=== PATIENT | male | born 1950 | race Caucasian/White ===

== ENCOUNTER 2018-04-08 15:15 | Outpatient (RCR) | payer OTHER ==
[2015-12-03 10:28] VITALS: BMI 35.6
--- NOTE | 2018-01-09 17:31 | PT INITIAL EVALUATION ---
MEDICAL DIAGNOSIS: left ankle s/p ORIF TREATMENT DIAGNOSIS: same DATE OF ONSET: 11/24/17 SUBJECTIVE: Amari Platt presents to physical therapy s/p L ankle ORIF on the November, however, the injury occurred on the November due to a fall. He reports that he can put "a little" weight on his L LE as long as he has the boot on. He reports that he has been moving his ankle as much as possible. He also reports that he has been soaking his L ankle and applying lotion to his foot nightly. He also reports that he has been sparingly applying ice with elevation. He rates his current pain to be 0-1 /10. He states that the pain does not increase with weightbearing as long as the boot in donned. He also reports that he has been moving his L ankle around in all directions 2-3 times per day. He states that moving his ankle around does increase his ankle pain. Pain location is L ankle ankle and described as achy. Pain scale is 1 on a ten point pain scale. 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 He demonstrated no signs or symptoms of an infection. Posture: He demonstrated minimal B rounded shoulders, increased thoracic kyphosis, and decreased lumbar lordosis. ROM: L ankle PROM: inversion: 15 degrees, eversion: 15 degrees, PF: 50 degrees, DF: 30 degrees from 0 degrees. He demonstrated empty end feels in all directions except for L ankle eversion. L ankle AROM: inversion: 5 degrees, eversion: 10 degrees, DF: 35 degrees from 0 degrees, PF: 40 degrees. He Strength: Did not test due to recent surgical intervention Special Tests: Minimal hypomobility within L cuneiforms and MTP's. Palpation: TTP: over L anterior joint line Sensation: Intact: L2-S2 B Mobility: Modified Independent with FWW Gait: Did not test; will test in the future Balance: Did not test; will test in the future ASSESSMENT: Amari will benefit from skilled physical therapy to address the listed impairments to improve function and QOL. Short Term Goals 4 weeks: Pt will demonstrate in PROM-AROM of L ankle from baseline to equal to R ankle motions (all motions) to improve function and QOL. 6 weeks: Pt will be able to ambulate independently to improve function and QOL. Patient's Goals improve range of motion, get back to walking, and then get back to work PLAN: Patient to be seen for Manual Therapy/STM/MET Strengthening/condition Ice/Heat Range of Motion Spinal Stabilization Work Hardening/Cond Stretching Neuromuscular Re-ed Closed Chain Program Electrical Stim Gait Trg/Balance Trg Home Exercise Program Therapeutic Activities 2-3x/week for 6 Weeks If you have any questions, comments, or concerns about this report or plan, please contact me at . Thank you, Danie Ni, PT, DPT MTDD
--- NOTE | 2018-01-30 16:46 | PT PLAN OF CARE ---
Physician: Michael Metzger MD Patient is being seen: 3x/week Therapist: Danie Ni, PT, DPT Medical Diagnosis: left ankle s/p ORIF Treatment Diagnosis: same Date of Onset: 11/24/17 Date of Initial Evaluation: 01/09/18 Date patient was last seen: 01/30/18 Number of treatments: 10 Number of cancellations/No shows: 0 INTERVENTIONS: Manual Therapy/STM/MET Strengthening/condition Ice/Heat Range of Motion Spinal Stabilization Work Hardening/Cond Stretching Neuromuscular Re-ed Closed Chain Program Electrical Stim Gait Trg/Balance Trg Home Exercise Program Therapeutic Activities GOALS: 4 weeks: Pt will demonstrate in PROM-AROM of L ankle from baseline to equal to R ankle motions (all motions) to improve function and QOL. Progressing well 12 weeks: Pt will be able to ambulate independently to improve function and QOL. NM PATIENT'S GOAL: improve range of motion, get back to walking, and then get back to work Status of Patient's Goals: Progressing Patient Compliance: Excellent Prognosis: Excellent Reasons for continuing therapy: This is a progress note for Amari Giulia. He reports that he continues to feel soreness around his anterior ankle and heel around distal achilles tendon. He reports that he continues to perform his current home exercise and move his foot/toes around in all directions every few hours at home. He reports that he continues to weight bear approximately 25% with his FWW around his home. He reports that the swelling has continued to decrease especially when he raises it above his heart. He reports minimal pain and states that it is more soreness than anything. He has demonstrated the following improvements: significant reduction of edema, significant improvements with L ankle PROM-AROM in all directions, however, he continues to be the most limited with DF and eversion, L ankle strength in all directions, increased L LE strength, and improved incision healing. We will continue to improve PROM-AROM of L ankle and strength. Once he is cleared to weight bear more than 25%, we will improve gait mechanics and return his gait to prior level of function. Posture: He demonstrated minimal B rounded shoulders, increased thoracic kyphosis, and decreased lumbar lordosis. ROM: L ankle PROM: inversion: 25 degrees, eversion: 20 degrees, PF: 50 degrees, DF: +2 degrees. He demonstrated empty end feels with DF and eversion and normal end feels with PF and inversion. L ankle AROM: inversion: 25 degrees, eversion: 18 degrees, DF: 0 degrees, PF: 50 degrees. Strength: Did not test due to recent surgical intervention Palpation: TTP: over L anterior joint line and distal achilles tendon If you have any questions, please contact me at [phone]. Thank you, Danie Ni, PT, DPT ENRIKE
--- NOTE | 2018-03-02 17:34 | PT PLAN OF CARE ---
Physician: Michael Metzger MD Patient is being seen: 3x/week Therapist: Danie Ni, PT, DPT Medical Diagnosis: left ankle s/p ORIF Treatment Diagnosis: same Date of Onset: 11/24/17 Date of Initial Evaluation: 01/09/18 Date patient was last seen: 03/02/18 Number of treatments: 21 Number of cancellations/No shows: 0 INTERVENTIONS: Manual Therapy/STM/MET Strengthening/condition Ice/Heat Range of Motion Spinal Stabilization Work Hardening/Cond Stretching Neuromuscular Re-ed Closed Chain Program Electrical Stim Gait Trg/Balance Trg Home Exercise Program Therapeutic Activities GOALS: 4 weeks: Pt will demonstrate in PROM-AROM of L ankle from baseline to equal to R ankle motions (all motions) to improve function and QOL. Progressing well 12 weeks: Pt will be able to ambulate independently to improve function and QOL. MET PATIENT'S GOAL: improve range of motion, get back to walking, and then get back to work Status of Patient's Goals: Progressing Patient Compliance: Excellent Prognosis: Excellent Reasons for continuing therapy: This is a progress note for Amari Aminjorgitofrantz. He reports that he is doing well. He reports that he has been doing his home exercise program at home on a daily basis. He reports that he feels like he is most limited with ankle DF and the other motions feel pretty good. He reports that he feels like walking is getting better. He reports minimal soreness/pain with walking. He demonstrated improvements with his L ankle PROM in all directions; however, he demonstrates full PROM in all directions except for L ankle DF. The L ankle DF end feel now feels like muscular end feel versus the hard end feel it did the previous weeks. He also demonstrates improvements in gait mechanics as he demonstrates equal step lengths, equal clearance, normal base of support, normal velocity, independent (no AD); however, he does demonstrate increased lateral trunk movement due to the increased height on his L LE versus his R LE. He continues to demonstrate improved swelling around foot and ankle but continues to have it. We will continue to improve PROM-AROM especially DF, strength, gait mechanics, reduce swelling, and return to prior level of function. Posture: He demonstrated minimal B rounded shoulders, increased thoracic kyphosis, and decreased lumbar lordosis. ROM: L ankle PROM: inversion: 25 degrees, eversion: 45 degrees, PF: 50 degrees, DF: +5 degrees. He demonstrated empty end feels with DF and normal end feels with PF, eversion, and inversion. L ankle AROM: inversion: 25 degrees, eversion : 45 degrees, DF: 0 degrees, PF: 50 degrees. Palpation: TTP: over L anterior joint line and distal achilles tendon If you have any questions, please contact me at [phone]. Thank you, Danie Ni, PT, DPT MTDD
[~2018-04-08 15:15] MED LIST: EZET10TA41 PO; KET10 PO; OXYC-865 PO; SIMV-59 PO
== END 2018-04-09 ==
LOC: PT 15:15
PROVIDERS: ATTEND Orthopaedic Surgery
DX: Z47.89 Encounter for other orthopedic aftercare (principal); M25.572 Pain in left ankle and joints of left foot
CPT/HCPCS: 97162

== ENCOUNTER 2018-06-05 15:15 | Outpatient (RCR) | payer OTHER ==
[2015-12-03 10:28] VITALS: BMI 35.6
--- NOTE | 2018-04-10 16:59 | PT PLAN OF CARE ---
Physician: Michael Metzger MD Patient is being seen: 3x/week Therapist: Danie Ni, PT, DPT Medical Diagnosis: left ankle s/p ORIF Treatment Diagnosis: same Date of Onset: 11/24/17 Date of Initial Evaluation: 01/09/18 Date patient was last seen: 04/10/18 Number of treatments: 31 Number of cancellations/No shows: 1 INTERVENTIONS: Manual Therapy/STM/MET Strengthening/condition Ice/Heat Range of Motion Spinal Stabilization Work Hardening/Cond Stretching Neuromuscular Re-ed Closed Chain Program Electrical Stim Gait Trg/Balance Trg Home Exercise Program Therapeutic Activities GOALS: 4 weeks: Pt will demonstrate in PROM-AROM of L ankle from baseline to equal to R ankle motions (all motions) to improve function and QOL. Progressing well 12 weeks: Pt will be able to ambulate independently to improve function and QOL. MET PATIENT'S GOAL: improve range of motion, get back to walking, and then get back to work Status of Patient's Goals: Progressing Patient Compliance: Excellent Prognosis: Excellent Reasons for continuing therapy: This is a progress note for Amari Giulia. He reports that he continues to have difficulties with swelling. He reports that he feels like his L ankle DF is staying the same. He reports that the swelling has been better since returning to [place], however, he reports that when he was in [place] that swelling was much worse. He reports that he has increased pain following working in his yard and walking more today. He demonstrates improvements with L ankle DF with PROM and with AROM from 0 degrees to 2 degrees (AROM) and 5 degrees to 8 degrees with (PROM) of his L ankle. Furthermore, he demonstrates improved gait mechanics when the ankle is not painful with excellent weight shift to the L LE along with increased push off and better initial contact. He has also demonstrated improvement with B LE strength. We will continue to improve gait mechanics, decrease swelling, increase strength, and return to prior level of function. Posture: He demonstrated minimal B rounded shoulders, increased thoracic kyphosis, and decreased lumbar lordosis. ROM: L ankle PROM: inversion: 25 degrees, eversion: 45 degrees, PF: 50 degrees, DF: +8 degrees. He demonstrated empty end feels with DF and normal end feels with PF, eversion, and inversion. L ankle AROM: inversion: 25 degrees, eversion : 45 degrees, DF: 2 degrees, PF: 50 degrees. Palpation: TTP: over L anterior joint line and distal achilles tendon If you have any questions, please contact me at [phone]. Thank you, Danie Ni, PT, DPT MTDD
--- NOTE | 2018-05-07 18:34 | PT PLAN OF CARE ---
Physician: Michael Metzger MD Patient is being seen: 3x/week Therapist: Danie Ni, PT, DPT Medical Diagnosis: left ankle s/p ORIF Treatment Diagnosis: same Date of Onset: 11/24/17 Date of Initial Evaluation: 01/09/18 Date patient was last seen: 05/06/18 Number of treatments: 41 Number of cancellations/No shows: 2 INTERVENTIONS: Manual Therapy/STM/MET Strengthening/condition Ice/Heat Range of Motion Spinal Stabilization Work Hardening/Cond Stretching Neuromuscular Re-ed Closed Chain Program Electrical Stim Gait Trg/Balance Trg Home Exercise Program Therapeutic Activities GOALS: 4 weeks: Pt will demonstrate in PROM-AROM of L ankle from baseline to equal to R ankle motions (all motions) to improve function and QOL. Progressing well 12 weeks: Pt will be able to ambulate independently to improve function and QOL. MET PATIENT'S GOAL: improve range of motion, get back to walking, and then get back to work Status of Patient's Goals: Progressing Patient Compliance: Excellent Prognosis: Excellent Reasons for continuing therapy: This is a progress note for Amari Giulia. He reports that he feels like his L ankle DF is staying the same. He reports that he was able to mow his lawn this morning without having an increase in swelling; however, he reports that he continues to have pain, which makes his walking not so great. He reports that he continues to stress his ankle with the stretching and strengthening at home. He continues to maintain his ankle PROM- AROM in all directions with normal end feels. He did demonstrate 1 degree improvement with AROM DF. He demonstrates normal gait mechanics when his ankle feels great and is not painful. If his ankle is painful, he demonstrates antalgic gait. The biggest improvement over the last few sessions, is that we can stress his L ankle and LE without increasing swelling in his lower leg. As a result, I think that it would be beneficial for him to attend PT for one more month to continue to improve ROM, strength, return to prior level of function. Posture: He demonstrated minimal B rounded shoulders, increased thoracic kyphosis, and decreased lumbar lordosis. ROM: L ankle PROM: inversion: 40 degrees, eversion: 45 degrees, PF: 50 degrees, DF: +8 degrees. He demonstrated empty end feels with DF and normal end feels with PF, eversion, and inversion. L ankle AROM: inversion: 40 degrees, eversion : 45 degrees, DF: 2 degrees, PF: 50 degrees. Palpation: TTP: over L anterior joint line and distal achilles tendon If you have any questions, please contact me at [phone]. Thank you, Danie Ni, PT, DPT MTDD
--- NOTE | 2018-06-01 17:34 | PT PLAN OF CARE ---
Physician: Michael Metzger MD Patient is being seen: 3x/week Therapist: Danie Ni, PT, DPT Medical Diagnosis: left ankle s/p ORIF Treatment Diagnosis: same Date of Onset: 11/24/17 Date of Initial Evaluation: 01/09/18 Date patient was last seen: 06/01/18 Number of treatments: 51 Number of cancellations/No shows: 2 INTERVENTIONS: Manual Therapy/STM/MET Strengthening/condition Ice/Heat Range of Motion Spinal Stabilization Work Hardening/Cond Stretching Neuromuscular Re-ed Closed Chain Program Electrical Stim Gait Trg/Balance Trg Home Exercise Program Therapeutic Activities GOALS: 4 weeks: Pt will demonstrate in PROM-AROM of L ankle from baseline to equal to R ankle motions (all motions) to improve function and QOL. Not MET 6 weeks: Pt will be able to ambulate independently to improve function and QOL. Progressing PATIENT'S GOAL: improve range of motion, get back to walking, and then get back to work Status of Patient's Goals: Progressing Patient Compliance: Good Prognosis: Excellent Reasons for continuing therapy: This is a progress note for Amari Aminjorgitofrantz. He reports that he is doing well. He reports that his L ankle DF continues to be limited. He reports that he feels like his walking is getting better. He reports that he continues to have pain on his distal tibia. Furthermore, he also reports that he occasional has lateral ankle pain around the distal fibula that has been getting better with time. He continues to demonstrate the same PROM DF despite over efforts of stretching 3 times per week. However, he demonstrated an increase in AROM of DF from 1 degree to 5 degrees, which is the same level of his PROM DF, which is a significant improvement over the last 10 sessions. He continues to demonstrate a hard end feel into DF, which could mean that it is obstructed. He continues to demonstrate significant improvement in his ankle balance strategies in all conditions. He demonstrates minimal antalgic gait that continues to demonstrate improvements. He also continues to improve in B LE strength. However, his swelling has minimal decreased from 31 cm to 29 cm over the last 10 sessions. Posture: He demonstrated minimal B rounded shoulders, increased thoracic kyphosis, and decreased lumbar lordosis. ROM: L ankle PROM: inversion: 40 degrees, eversion: 45 degrees, PF: 50 degrees, DF: +5 degrees. He demonstrated empty end feels with DF and normal end feels with PF, eversion, and inversion. L ankle AROM: inversion: 40 degrees, eversion : 45 degrees, DF: 5 degrees, PF: 50 degrees. Palpation: TTP: over L anterior joint line and occasionally on distal fibular If you have any questions, please contact me at [phone]. Thank you, Danie Ni, PT, DPT ENRIKE
[~2018-06-05 15:15] MED LIST changes: -SIMV-59 PO; +SIMV-63 PO
== END 2018-06-05 18:00 | disposition home or self-care (01) ==
LOC: PT 15:15
PROVIDERS: ATTEND Orthopaedic Surgery
DX: Z47.89 Encounter for other orthopedic aftercare (principal); M25.572 Pain in left ankle and joints of left foot